=== PATIENT | male | born 1965 | race Caucasian/White ===

== ENCOUNTER 2018-01-10 17:54 | Emergency (ER) | payer BC ==
[~2018-01-10] VITALS: Ht 185.4 cm; Wt 150.4 kg
[~2018-01-10 17:54] MED LIST: ACETAMINOPHEN1 EAC1 PO; BACTRIM,SEPT1 TABLET PO; BP MED; CEFTIN250 MG PO; CIPRO500 MG PO; Ceftin PO; IMODIUM A-D2 M2 PO; KEPPRA PO; KEPPRA500 MG PO; METHADONE HCL40 MG PO; METHADONE PO; METHADONE10 MG PO; METHADOSE40 MG PO; METOPROLOL SUCC50 MG PO; NORVASC10 MG PO; Norvasc PO; PERCOCET 5/31 TABLET PO; Proventil,Ventolin H IH; REGLAN5 MG PO; TORADOL10 MG PO; VALTURNA 150-11 EACH PO; ZESTRIL10 MG PO; ZOFRAN4 MG PO; Zestril,Prinivil PO; [UNRECOGNIZED DRUG - OTHER]
[2018-01-10 19:39] LABS: HEMATOCRIT 42.7 % (38.0-50.0); HEMOGLOBIN 14.1 G/DL (12.5-16.6); MCH 27.7 PG (29.0-34.0); MCV 83.9 FL (86-99); PLATELET COUNT 263 K/uL (156-360); RBC DIS.WIDTH-CV 13.6 % (11.8-14.6); RBC DIS.WIDTH-SD 41.7 % (39-53); RED BLOOD COUNT 5.09 M/uL (4.00-5.50)
[2018-01-10 19:52] LABS: ALBUMIN 4.7 g/dL (3.2-4.8)
[2018-01-10 19:53] LABS: CHLORIDE 100 mEq/L (99-109); POTASSIUM 3.8 mEq/L (3.7-5.4); SODIUM 139 mEq/L (136-147)
[2018-01-10 19:55] LABS: GLUCOSE 98 mg/dL (70-99); TOTAL PROTEIN 8.2 g/dL (6.4-8.3)
[2018-01-10 19:57] LABS: TOTAL BILIRUBIN 0.5 mg/dL (0.0-1.0)
[2018-01-10 19:58] LABS: ALKALINE PHOSPHATASE 74 IU/L (3-129)
[2018-01-10 19:59] LABS: CREATININE 1.6 mg/dL (0.6-1.3); GFR ESTIMATE (CALCULATED) 48 mL/min/ (58.99-99999)
[2018-01-10 20:00] LABS: AST (GOT) 44 IU/L (2-34); UREA NITROGEN (BUN) 15 mg/dL (9-23)
[2018-01-10 20:01] LABS: ALT (GPT) 48 IU/L (3-49)
[2018-01-10 20:26] LABS: APPEARANCE CLEAR ((CLEAR)); BILIRUBIN NEGATIVE; BLOOD MODERATE; COLOR YELLOW ((YELLOW)); GLUCOSE (STRIP) NEGATIVE; KETONES NEGATIVE; LEUKOCYTES TRACE; NITRITE NEGATIVE; PROTEIN (STRIP) 30; SPECIFIC GRAVITY 1.013 (1.000-1.030); UROBILINOGEN 0.2 MG/DL (0.2-1.0)
[2018-01-10 20:37] LABS: BACTERIA RARE /HPF; EPITHELIAL CELLS RARE /HPF; MUCUS TRACE /LPF; RED BLOOD CELLS 30-40 /HPF (0-5); UCUL ADDED? YES
[2018-01-10] MEDS ORDERED: REGLAN10 MG PO (21:10)
[2018-01-10] MEDS ORDERED: BACTRIM,SEPT1 TABLET PO (21:10)
[2018-01-10 21:59] VITALS: BP 141/96
== END 2018-01-10 22:01 | disposition home or self-care (01) ==
LOC: EME 17:54
PROVIDERS: Physician Assistant
DX: N39.0 Urinary tract infection, site not specified (principal); M79.1 Myalgia; R51 Headache; R11.2 Nausea with vomiting, unspecified; H53.8 Other visual disturbances; H91.92 Unspecified hearing loss, left ear; Z87.442 Personal history of urinary calculi; I10 Essential (primary) hypertension
CPT/HCPCS: 70450; 80053; 81003; 85027; 87086; 99281; 99285; J1885; J2765; J7030